=== PATIENT | male | born 1990 | race Two or more races ===

== ENCOUNTER 2024-01-24 13:34 | Emergency (ER) | payer OTHER ==
[~2024-01-24] VITALS: Ht 177.8 cm; Wt 79.5 kg
[2024-01-24 13:37] VITALS: BP 141/87; PULSE 86; RESP 16; TEMP 98.7; O2SAT 100
== END 2024-01-24 15:09 | disposition home or self-care (01) ==
LOC: ER 13:34
DX: S60.222A Contusion of left hand, initial encounter (principal); V49.49XA Driver injured in collision with other motor vehicles in traffic accident, initial encounter; Y93.89 Activity, other specified; Y92.89 Other specified places as the place of occurrence of the external cause; Y99.8 Other external cause status
CPT/HCPCS: 73100; 73120; 99284